=== PATIENT | female | born 1965 | race Caucasian/White ===

== ENCOUNTER 2017-11-30 11:36 | Emergency (ER) | payer OTHER ==
--- NOTE | 2017-11-30 12:14 | PDOC ---
History of Present Illness - General Chief Complaint: Pain, Acute Stated Complaint: FALL Time Seen by Provider: 11/30/17 12:14 Past History - Past Medical History Allergies/Adverse Reactions: Allergies Allergy/AdvReac Type Severity Reaction Status Date / Time No Known Allergies Allergy Verified 11/30/17 12:12 Home Medications: Ambulatory Orders Levothyroxine [Synthroid -] 75 mcg PO DAILY 11/30/17
[2017-11-30 12:20] VITALS: BP 104/68; PULSE 76; TEMP 97.1; BMI 29.7
[2017-11-30] MEDS ORDERED: IBUPROFEN 600 MG TABLET (FP) PO ONE ×2 (12:45→12:57)
--- NOTE | 2017-11-30 12:46 | PDOC ---
History of Present Illness <Angeles Hills - Last Filed: 11/30/17 14:51> - General History Source: Patient Exam Limitations: No Limitations - History of Present Illness Initial Comments: 11/30/17 12:42 The patient is a 52F with a PMH of hypothyroidism who presents to the ED with complaints of ankle pain. The patient states that she was going down an indoor flight of stairs which had a crack in it, had her foot stuck in the stairs, and then fell down 5 steps. She is complaining of L ankle pain. She was not able to ambulate on the leg after the fall. She denies any CP, SOB, nausea, lightheadedness, palpitations, numbness, tingling, or weakness before, during, and after this episode. Her only complaint now is L ankle pain. <Israel Stevens - Last Filed: 11/30/17 15:56> - General Chief Complaint: Pain, Acute Stated Complaint: FALL Time Seen by Provider: 11/30/17 12:14 Past History <[place] - Last Filed: 11/30/17 14:51> - Past Medical History COPD: No Thyroid Disease: Yes - Suicide/Smoking/Psychosocial Hx Smoking History: Never smoked Hx Alcohol Use: No Drug/Substance Use Hx: No <Israel Stevens - Last Filed: 11/30/17 15:56> - Past Medical History Allergies/Adverse Reactions: Allergies Allergy/AdvReac Type Severity Reaction Status Date / Time No Known Allergies Allergy Verified 11/30/17 12:12 Home Medications: Ambulatory Orders Ibuprofen 600 mg PO TID PRN #30 tablet 11/30/17 Levothyroxine [Synthroid -] 75 mcg PO DAILY 11/30/17 Review of Systems - Review of Systems Able to Perform ROS?: Yes Comments:: 11/30/17 12:57 GENERAL/CONSTITUTIONAL: No fever or chills. No weakness. HEAD, EYES, EARS, NOSE AND THROAT: No change in vision. No ear pain or discharge. No sore throat. GASTROINTESTINAL: No nausea, vomiting, diarrhea, constipation, or abdominal pain. GENITOURINARY: No dysuria, frequency, hematuria, or change in urination. CARDIOVASCULAR: No chest pain, palpitations, or lightheadedness. RESPIRATORY: No cough, wheezing, shortness of breath, or hemoptysis. MUSCULOSKELETAL: Positive for L ankle pain. No neck or back pain. SKIN: No rash or lesions. NEUROLOGIC: No headache, numbness, tingling, weakness, loss of consciousness, or change in strength/sensation. ENDOCRINE: No increased thirst. No abnormal weight change. HEMATOLOGIC/LYMPHATIC: No anemia, easy bleeding, or history of blood clots. ALLERGIC/IMMUNOLOGIC: No hives or skin allergy. Is the patient limited Syriac proficient: No <Israel Stevens - Last Filed: 11/30/17 15:56> *Physical Exam - Vital Signs Last Vital Signs Temp Pulse Resp BP Pulse Ox 97.1 F L 76 18 104/68 98 11/30/17 12:00 11/30/17 12:00 11/30/17 12:00 11/30/17 12:00 11/30/17 12:00 <[place] - Last Filed: 11/30/17 14:51> - Vital Signs Last Vital Signs Temp Pulse Resp BP Pulse Ox 97.1 F L 76 18 104/68 98 11/30/17 12:00 11/30/17 12:00 11/30/17 12:00 11/30/17 12:00 11/30/17 12:00 - Physical Exam Comments: 11/30/17 12:57 GENERAL: Well developed, well nourished. Awake and alert. No acute distress. HEENT: Normocephalic, atraumatic. Hearing grossly normal. Moist mucous membranes. PERRLA, EOMI. No conjunctival pallor. Sclera are non-icteric. NECK: Supple. Full ROM. No JVD. CARDIOVASCULAR: Regular rate and rhythm. No murmurs, rubs, or gallops. DP pulse 2+ b/l. PULMONARY: No evidence of respiratory distress. Lungs clear to auscultation bilaterally. No wheezing, rales or rhonchi. ABDOMINAL: Soft. Non-tender. Non-distended. No rebound or guarding. GENITOURINARY: No CVA tenderness bilaterally. MUSCULOSKELETAL: TTP over distal portion of medial malleolus and dorsal aspect of L ankle. EXTREMITIES: No cyanosis. No clubbing. No edema. No calf tenderness. SKIN: Warm and dry. Normal capillary refill. No rashes. No jaundice. NEUROLOGICAL: Alert, awake, appropriate. Cranial nerves 2-12 intact. Normal speech. Gait is normal without ataxia. PSYCHIATRIC: Cooperative. Good eye contact. Appropriate mood and affect. <Israel Stevens - Last Filed: 11/30/17 15:56> ED Treatment Course - Medications Given in the ED: ED Medications Discontinued Medications Generic Name Dose Route Start Last Admin Trade Name Freq PRN Reason Stop Dose Admin Ibuprofen 600 mg 11/30/17 12:45 11/30/17 12:45 Motrin - PO 11/30/17 12:46 600 mg ONCE ONE Administration <[place] - Last Filed: 11/30/17 14:51> - RADIOLOGY Radiology Studies Ordered: Category Date Time Status ANKLE & FOOT-LEFT* [RAD] Stat Radiology 11/30/17 12:42 Ordered <Israel Stevens - Last Filed: 11/30/17 15:56> Medical Decision Making - Medical Decision Making 11/30/17 12:59 The patient is a 52F with a PMH of hypothyroidism who presents after sustaining a fall and injuring her L ankle. Will order XR to r/o occult fracture. This was a mechanical fall so I am not concerned for other causes of her falling. Pending XR. Will give ibuprofen for pain control. 11/30/17 14:53 XR Read: Acute fracture base fifth metatarsal. Sclerotic density fourth metatarsal. Bunion formation first MTP joint. Correlation recommended. Orthopedic follow-up needed. 11/30/17 15:55 Attending d/c patient with a boot and ortho f/u. <Israel Stevens - Last Filed: 11/30/17 15:56> *DC/Admit/Observation/Transfer - Discharge Dispostion Admit: No <[place] - Last Filed: 11/30/17 14:51> <Israel Stevens - Last Filed: 11/30/17 15:56> Diagnosis at time of Disposition: Metatarsal bone fracture Qualifiers: Encounter type: initial encounter Metatarsal bone: fifth Fracture type: closed Fracture alignment: nondisplaced Laterality: right Qualified Code(s): S92.354A - Nondisplaced fracture of fifth metatarsal bone, right foot, initial encounter for closed fracture - Discharge Dispostion Disposition: HOME Condition at time of disposition: Good - Prescriptions Prescriptions: Ibuprofen 600 mg PO TID PRN #30 tablet PRN Reason: Pain - Referrals Referrals: Warren Larson MD [Primary Care Provider] - Misha Arroyo MD [Staff Physician] - - Patient Instructions Printed Discharge Instructions: DI for Foot Fracture Additional Instructions: you have a small fracture of your foot. You should wear the hard shoe except to shower until you follow up with orthopedics. You can use crutches if it hurts too much to bear weight on your foot. you should return to the ED for new or worsening symptoms, severe pain, cold numb blue swollen foot. Make sure that you call Dr. Arroyo for follow up next week. - Post Discharge Activity Forms/Work/School Notes: Back to Work
--- NOTE | 2017-11-30 14:20 | PDOC ---
Attending Attestation - Resident Resident Name: Israel Stevens - HPI HPI: 11/30/17 14:31 Pt presents to the ED complaining of R foot pain after tripping and falling on her everted R foot. Complaining of pain over the dorsum of the foot, worse over the lateral aspect. unable to weight bear after the injury. 11/30/17 14:32 11/30/17 14:35 - Physicial Exam PE: 11/30/17 14:35 Agree with resident exam. + ecchymosis over the dorsum of the foot. + tenderness over the base of the 5th metatarsal. - Medical Decision Making 11/30/17 14:38 Patient presents to the ED complaining of foot pain after trip and fall on everted ankle. Denies other symptoms. Xray is consistent with psuedojones fracture. CAse discussed with orthopedic YOKASTA Almeida. Patient will be placed in hard soled shoe and discharged with weightbearing as tolerated. She will follow up with Dr. Herring next week.
== END 2017-11-30 15:05 | disposition home or self-care (01) ==
LOC: JER 11:36
DX: S92.354A Nondisplaced fracture of fifth metatarsal bone, right foot, initial encounter for closed fracture (principal); W10.8XXA Fall (on) (from) other stairs and steps, initial encounter; Y93.89 Activity, other specified; Y92.098 Other place in other non-institutional residence as the place of occurrence of the external cause; Y99.8 Other external cause status; E03.9 Hypothyroidism, unspecified
CPT/HCPCS: 73610-TC-LT; 73630-TC-LT; 99282-25